=== PATIENT | female | born 1970 | race Caucasian/White ===

== ENCOUNTER → 2017-09-23 | Outpatient (CLI) | payer OTHER ==
[~2017-09-23] MED LIST: CELEBREX 200MG200 MG PO; EFFEXOR XR75 MG/CAP PO; FLONASEALLERGY NS; NATURE'S BLE1000 MCG PO; NEXIUM 40MG40 MG PO; PROAIR HFA0.09 MG/AC IH; RT ADVAIR 128 DISKUS IH; VALTREX1 GM PO; VITAMIN D32000 I1 PO; ZYRTEC 10MG10 MG PO
== END ==
LOC: COL.RAD 07:39
DX: R19.7 Diarrhea, unspecified (principal); R12 Heartburn; R10.9 Unspecified abdominal pain; R14.0 Abdominal distension (gaseous)
CPT/HCPCS: A9541

== ENCOUNTER → 2018-05-05 | Outpatient (CLI) | payer OTHER | LOC: COL.RAD 13:09 | DX: N81.6 Rectocele (principal) | CPT/HCPCS: A9585 ==

== ENCOUNTER 2019-12-02 11:52 | Emergency (ER) | payer OTHER ==
[~2019-12-02] VITALS: Ht 162.6 cm; Wt 58.6 kg
[2019-12-02 11:58] VITALS: TEMP 98
[2019-12-02 12:45] LABS: ALBUMIN 4.1 gm/dL (3.5-5.0); BILIRUBIN,TOTAL 0.4 mg/dL (0.0-1.0); CALCIUM 9.6 mg/dL (8.4-10.2); CREATININE, serum 0.53 (0.52-1.25); POTASSIUM 3.8 mmol/L (3.4-5.0); TOTAL PROTEIN 7.1 gm/dL (6.4-8.2)
[2019-12-02 13:06] LABS: BASO # 0.1 (0.0-0.2); BASO % 0.9 % (0.0-2.0); EOS # 0.1 (0.0-0.7); EOS % 0.7 % (0-4.0); GRAN # 6.9 (1.4-6.5); GRAN % 62.7 % (42.2-75.2); HEMATOCRIT 39.3 % (37.0-47.0); HEMOGLOBIN 13.2 g/dl (12.5-16.0); LYMPH # 3.4 (1.2-3.4); LYMPH % 30.8 % (20.0-51.0); MEAN CELL VOLUME 88 fl (80.0-100.0); MEAN CORPUSCULAR HEMOGLOBIN 30 pg (27.0-31.0); MEAN CORPUSCULAR HGB CONC 34 g/dl (33.0-37.0); MONO # 0.5 (0.1-0.6); MONO % 4.5 % (1.7-9.3); PLATELET COUNT 221 K/mm3 (130-400); RED BLOOD COUNT 4.46 M/mm3 (4.10-5.30); REDCELL DISTRIBUTION WIDTH-CV 12.1 % (11.5-14.5)
[2019-12-02] MEDS ORDERED: NORCO 325 MG-51 TAB PO (13:37)
[2019-12-02 13:40] VITALS: BP 119/82; PULSE 86
== END 2019-12-02 14:04 | disposition home or self-care (01) ==
LOC: COL.ER 11:52
PROVIDERS: Emergency Medicine
DX: S52.502A Unspecified fracture of the lower end of left radius, initial encounter for closed fracture (principal); S52.615A Nondisplaced fracture of left ulna styloid process, initial encounter for closed fracture; Z88.1 Allergy status to other antibiotic agents; W11.XXXA Fall on and from ladder, initial encounter; Y92.009 Unspecified place in unspecified non-institutional (private) residence as the place of occurrence of the external cause
CPT/HCPCS: J3010; Q4050; Q9967